=== PATIENT | female | born 1965 | race Caucasian/White ===

== ENCOUNTER 2017-04-18 17:08 | Emergency (ER) | payer SELFPAY ==
[~2017-04-18] VITALS: Ht 157.5 cm; Wt 65.0 kg
[2017-04-18 17:17] VITALS: BP 144/92; PULSE 90; RESP 17; TEMP 97.9; O2SAT 99
[2017-04-18] MEDS ORDERED: NAPR500 PO (19:08)
[2017-04-18] MEDS ORDERED: ROBA500T PO (19:08)
--- NOTE | 2017-04-18 19:10 | PD ---
HPI Chief Complaint: Back/ Neck Pain or Injury Time Seen by Provider: 18:52 Travel History International Travel<30 days: No Contact w/Intl Traveler<30days: No Traveled to known affect area: No History of Present Illness HPI 51 year-old female presents to emergency department for evaluation following a fall. Patient states that a kid on a skateboard ran into her and she fell. She braced her fall with her right upper extremity and kind of twisted her back. She did not hit her head or lose consciousness. She was able to help herself up and walk without difficulty. She does not believe anything is broken and would not like imaging studies at this time. She just wanted to be evaluated. Pain is a dull, ache, exacerbated with movement. Denies saddle paresthesia, no loss of bowel or bladder, no lower extremity weakness. She has no other symptoms to report at this time. [facility] Past Medical History Medical History: Denies Significant Hx Social History Alcohol Use: No Tobacco Use: Yes Substance Use: No Allergies-Medications (Allergen,Severity, Reaction): Coded Allergies: Sulfa (Sulfonamide Antibiotics) (Verified Allergy, Unknown, 04/18/17) tetracycline (Verified Allergy, Unknown, 04/18/17) Reported Meds & Prescriptions Reported Meds & Active Scripts Active Robaxin (Methocarbamol) 500 Mg Tab 500 Mg PO QID PRN Naprosyn (Naproxen) 500 Mg Tab 500 Mg PO BID PRN Review of Systems Except as stated in HPI: all other systems reviewed are Neg Physical Exam Narrative GENERAL: Well-nourished female patient, ambulatory with a nonantalgic gait, in no acute distress SKIN: Focused skin assessment warm/dry. HEAD: Atraumatic. Normocephalic. EYES: Pupils equal and round. No scleral icterus. No injection or drainage. ENT: No nasal bleeding or discharge. Mucous membranes pink and moist. NECK: Trachea midline. No JVD. CARDIOVASCULAR: Regular rate and rhythm. No murmur appreciated. RESPIRATORY: No accessory muscle use. Clear to auscultation. Breath sounds equal bilaterally. GASTROINTESTINAL: Abdomen soft, non-tender, nondistended. Hepatic and splenic margins not palpable. MUSCULOSKELETAL: No obvious deformities. No clubbing. No cyanosis. No edema. Her is no midline spinal tenderness. There is some tenderness in the right lower paraspinous musculature. Patient's right wrist is without deformity. She has full range of motion. [employer] strength are equal bilaterally. NEUROLOGICAL: Awake and alert. No obvious cranial nerve deficits. Motor grossly within normal limits. Normal speech. PSYCHIATRIC: Appropriate mood and affect; insight and judgment normal. Data Data Last Documented VS Vital Signs Date Time Temp Pulse Resp B/P (MAP) Pulse Ox O2 Delivery O2 Flow Rate FiO2 04/18/17 19:50 04/18/17 17:17 97.9 90 17 99 Orders Orders Ketorolac Inj (Toradol Inj) (04/18/17 19:15) Orphenadrine Inj (Norflex Inj) (04/18/17 19:15) Splint Or Brace Apply/Monitor (04/18/17 19:05) Cockup Hand Splint (04/18/17 ) [facility] Medical Decision Making Medical Screen Exam Complete: Yes Emergency Medical Condition: Yes Medical Record Reviewed: Yes Differential Diagnosis Sprain versus strain versus discogenic pain versus radiculopathy Narrative Course 51 year-old female presents to the emergency department for evaluation following a fall. Patient is ambulatory without distress. She has no focal deficits or weakness. She has no deformity. No spinal tenderness. She is treated for pain here in emergency department. She would really like to forego imaging if possible at this time. Patient has no focal deficits or weakness. She has no red flag symptoms. She has no spinal tenderness. She has no deformity. I think this is a reasonable approach at this time. I did explain to her that if symptoms persist or get worse she would need to return for further evaluation of the pain. She is in agreement with this plan and very thankful. Diagnosis Primary Impression: Low back strain Qualified Codes: S39.012A - Strain of muscle, fascia and tendon of lower back , initial encounter Additional Impression: Right wrist sprain Qualified Codes: S63.501A - Unspecified sprain of right wrist, initial encounter Referrals: Primary Care Physician Patient Instructions: General Instructions, Low Back Strain (ED), Wrist Sprain (DC) Additional Instructions: Brace for support Follow up with a primary care provider If symptoms persist, imaging may be warranted Return to ED with acute worsening of symptoms Med/Other Pt SpecificInfo: Prescription(s) given Scripts Methocarbamol (Robaxin) 500 Mg Tab 500 MG PO QID Y for MUSCLE SPASM, #20 TAB 0 Refills Prov: Chrissy Woods 04/18/17 Naproxen (Naprosyn) 500 Mg Tab 500 MG PO BID Y for PAIN SCALE 1 TO 10, #30 TAB 0 Refills Prov: Chrissy Woods 04/18/17 Disposition: 01 DISCHARGE HOME Condition: Stable Chrissy Woods Apr 18, 2017 19:10
[2017-04-18] MEDS ORDERED: KETOROLAC TROMETHAMINE 60 MG/2 ML (IM) VIAL IM ONE (19:15)
[2017-04-18] MEDS ORDERED: ORPHENADRINE INJ 60 MG/2 ML AMP IM ONE (19:15)
== END 2017-04-18 19:55 | disposition home or self-care (01) ==
LOC: NEPD 17:08
DX: S39.012A Strain of muscle, fascia and tendon of lower back, initial encounter (principal); S63.501A Unspecified sprain of right wrist, initial encounter; W03.XXXA Other fall on same level due to collision with another person, initial encounter; Y93.01 Activity, walking, marching and hiking; Z72.0 Tobacco use
CPT/HCPCS: 96372; 99284; J1885; J2360; L3908

== ENCOUNTER 2017-04-30 13:19 | Emergency (ER) | payer SELFPAY ==
[~2017-04-30] VITALS: Ht 157.5 cm; Wt 62.0 kg
[~2017-04-30 13:19] MED LIST: NAPR500 PO; ROBA500T PO
[2017-04-30 13:21] VITALS: BP 122/73; PULSE 84; RESP 18; TEMP 99.3; O2SAT 97
[2017-04-30] MEDS ORDERED: PENI500T PO (14:21)
--- NOTE | 2017-04-30 14:22 | PD ---
HPI Chief Complaint: ENT Complaint Time Seen by Provider: 14:15 Travel History International Travel<30 days: No Contact w/Intl Traveler<30days: No Traveled to known affect area: No History of Present Illness HPI 51-year-old female presents to the emergency department for evaluation of sore throat and fever times one day. Patient reports pain with swallowing but is able to eat and drink without difficulty. She has not attempted any over-the- counter medications for symptom relief. Symptom severity is mild. She denies headache, nasal congestion, cough, chest pain, abdominal pain. PFSH Past Medical History ?: Not Social History Alcohol Use: No Tobacco Use: Yes Substance Use: No Allergies-Medications (Allergen,Severity, Reaction): Coded Allergies: Sulfa (Sulfonamide Antibiotics) (Verified Allergy, Unknown, 04/30/17) tetracycline (Verified Allergy, Unknown, 04/30/17) Reported Meds & Prescriptions Reported Meds & Active Scripts Active Robaxin (Methocarbamol) 500 Mg Tab 500 Mg PO QID PRN Naprosyn (Naproxen) 500 Mg Tab 500 Mg PO BID PRN Review of Systems Except as stated in HPI: all other systems reviewed are Neg General / Constitutional: Positive: Fever HENT: Positive: Sore Throat Physical Exam Narrative GENERAL: Well-nourished, well-developed patient. SKIN: Focused skin assessment warm/dry. HEAD: Normocephalic. THROAT:+ pharyngeal injection, with tonsillar hypertrophy and exudate. Uvula is midline. Airway is patent. NECK: Supple, trachea midline. No JVD or lymphadenopathy. No meningismus CARDIOVASCULAR: Regular rate and rhythm without murmurs, gallops, or rubs. RESPIRATORY: Breath sounds equal bilaterally. No accessory muscle use. Data Data Last Documented VS Vital Signs Date Time Temp Pulse Resp B/P (MAP) Pulse Ox O2 Delivery O2 Flow Rate FiO2 04/30/17 13:21 99.3 84 18 122/73 (89) 97 Room Air [facility] Medical Decision Making Medical Screen Exam Complete: Yes Emergency Medical Condition: Yes Differential Diagnosis Strep pharyngitis, viral pharyngitis, mononucleosis Narrative Course 51-year-old female with chief complaint sore throat and fever times one day. On exam patient has exudative tonsillitis. Patient's vital signs are stable. She is nontoxic appearing. She will be treated for strep pharyngitis. She is instructed to follow with her PCP. She verbalizes understanding and agrees to plan Diagnosis Primary Impression: Tonsillitis Referrals: Primary Care Physician Additional Instructions: Take the medication as prescribed. Take [id number] Motrin 600-800 mg every 6-8 hours as needed for pain. Stay well hydrated by drinking plenty of fluids. And emergency department if he developed new or worsening symptoms Scripts Penicillin V Potassium (Penicillin V Potassium) 500 Mg Tab 500 MG PO BID for Infection for 10 Days, #20 TAB 0 Refills Prov: Luisa Allen 04/30/17 Disposition: 01 DISCHARGE HOME Condition: Stable Luisa Allen Apr 30, 2017 14:22
== END 2017-04-30 14:30 | disposition home or self-care (01) ==
LOC: NEPK 13:19
DX: J03.90 Acute tonsillitis, unspecified (principal); R50.9 Fever, unspecified; Z79.899 Other long term (current) drug therapy; Z88.8 Allergy status to other drugs, medicaments and biological substances; Z72.0 Tobacco use; Z88.2 Allergy status to sulfonamides
CPT/HCPCS: 99283